=== PATIENT | female | born 1985 | race Caucasian/White ===

== ENCOUNTER → 2017-04-09 | Outpatient (CLI) | payer OTHER ==
[~2017-04-09] MED LIST: FLUV100T12 PO; PRENTAB26 PO
[2017-04-09 12:16] LABS: GTGD 50 Grams
[2017-04-10 15:41] LABS: AFP CONCENTRATION 16.8 NG/ML; AFP MULTIPLE OF MEDIAN 0.72; AFPTS GESTATIONAL AGE 16.1 WEEKS; AFPTS INSULIN DEP DIABETIC? NO; AFPTS MATERNAL WT 263 LBS; ALPHA-FETOPROTEIN RACE CAUCASIAN=W; CIGARETTE SMOKER? NOT PROVIDED; HISTORY OF NTD NO; REPEAT SAMPLE? NO
== END | disposition home or self-care (01) ==
LOC: C.LAB1850 10:07
PROVIDERS: ATTEND Obstetrics & Gynecology
DX: Z34.82 Encounter for supervision of other normal pregnancy, second trimester (principal)

== ENCOUNTER → 2017-07-04 | Outpatient (CLI) | payer OTHER ==
[2017-07-04 17:25] LABS: HEMATOCRIT 36.2 % (37-47); HEMOGLOBIN 12.4 g/dL (12.0-16.0)
== END | disposition home or self-care (01) ==
LOC: C.LAB1850 16:29
PROVIDERS: ATTEND Obstetrics & Gynecology
DX: Z34.82 Encounter for supervision of other normal pregnancy, second trimester (principal); Z3A.00 Weeks of gestation of pregnancy not specified

== ENCOUNTER → 2017-07-16 | Outpatient (CLI) | payer OTHER | END | disposition home or self-care (01) | LOC: C.LAB1850 08:20 | PROVIDERS: ATTEND Obstetrics & Gynecology | DX: O28.1 Abnormal biochemical finding on antenatal screening of mother (principal) ==

== ENCOUNTER → 2017-08-29 | Outpatient (CLI) | payer OTHER | END | disposition home or self-care (01) | LOC: C.LABSPEC 17:32 | PROVIDERS: ATTEND Obstetrics & Gynecology | DX: Z34.83 Encounter for supervision of other normal pregnancy, third trimester (principal) ==